=== PATIENT | male | born 1935 | race Caucasian/White ===

== ENCOUNTER 2021-12-17 12:27 | Day surgery (SDC) | payer MEDICARE, OTHER ==
[2021-12-17] VITALS (10 sets, daily range): BP systolic 136–184; BP diastolic 62–89; PULSE 48–66; TEMP 97.2–98.1
[~2021-12-17] VITALS: Ht 193 cm; Wt 97.2 kg
[~2021-12-17 12:27] MED LIST: ASPI81EC; CARDI-OMEGA1000 MG PO; GINGKO-GO120 MG PO; GLUCOSAMINE500 M1 PO; METOPROLOL50 MG PO; OSCAL 500 TAB500 MG PO; STROVITE FORTE1 TAB PO; VIT B-6100 MG PO; VITAMIND3 5000 PO
--- NOTE | 2021-12-17 17:00 | NUR ---
Pt. to the floor from PACU. Pt. is A&OX3, Assessment complete. Pt. denies pain. Call light within reach.
--- NOTE | 2021-12-17 18:58 | NUR ---
RECEIVED CHANGE OF SHIFT REPORT FROM DAY SHIFT RN.
[2021-12-18 04:02] VITALS: BP 142/72; PULSE 63; TEMP 98.1
--- NOTE | 2021-12-18 07:09 | NUR ---
CHANGE OF SHIFT REPORT GIVEN TO DAY SHIFT GERI LINCOLN.
[2021-12-18 09:05] VITALS: BP 140/68; PULSE 56; TEMP 98
--- NOTE | 2021-12-18 09:42 | NUR ---
Patient up to the bathroom. Reports some pressure in his low abdomen. Wanting to try again to have BM. He tried earlier this am & and was unable. He tolerated breakfast without nausea. Scrotum bruised, gauze intact with some bloody drainage noted. sutures intact. Jock strap on. Int. Patient very hard of hearing making communication difficult at times. Will monitor.
[2021-12-18] MEDS ORDERED: ROXICODONE 55 MG/TAB PO (10:27)
[2021-12-18] MEDS ORDERED: BACTRIM DS 8001 TAB PO (10:27)
[2021-12-18 11:05] VITALS: BP 131/54; PULSE 63; TEMP 98
--- NOTE | 2021-12-18 11:18 | NUR ---
[place]: [facility] Situation: product safety administrator stopped by room on rounds Background: Pt was sitting up in bed content Assessment: No needs right now. Pt appreciated the visit Recommendation: [employer] Operator will follow up as needed
--- NOTE | 2021-12-18 13:34 | NUR ---
rounded, discharge orders obtained. I called patient payam Ortega & set up for discharge ride home. Patient did well with lunch. Micky mc provided for discharge home.
--- NOTE | 2021-12-18 16:03 | NUR ---
Patient ready for discharge his ride is here. We reviewed all discharge education. Home med list reviewed with new prescriptions, we discussed side effects. activity & diet reviewed. Gauze provided for incisions, we discussed signs and syptoms of infections and when to call doctor. Follow up appt scheduled. Patient wheeled out with all belongings.
== END 2021-12-18 16:07 | disposition home or self-care (01) ==
LOC: SDCO 12:27 → SURG 17:34 → SDCO 12-18 16:07
DX: D17.72 Benign lipomatous neoplasm of other genitourinary organ (principal); N43.0 Encysted hydrocele
CPT/HCPCS: OP; A9284; J0690; J1100; J1885; J2405; J2704; J3010; J7120